=== PATIENT | female | born 1980 | race Caucasian/White ===

== ENCOUNTER 2016-12-04 17:13 | Emergency (ER) | payer OTHER ==
[2016-12-04 17:24] VITALS: BP 117/71; PULSE 83; TEMP 98; BMI 29.1
--- NOTE | 2016-12-04 18:10 | PDOC ---
History of Present Illness <Doug Graham - Last Filed: 12/04/16 22:01> - History of Present Illness Initial Comments: 12/04/16 18:44 The patient is 36-year-old female, , LMP about 16 weeks, with no significant past medical history, who presents for evaluation after mechanical slip and fall down three steps today. The patient reports primarily landing onto her bottom and denies direct abdominal trauma. She has no complaints at this time. She reports she did not hit her head or lose consciousness. She denies abdominal pain or cramping. She denies vaginal bleeding. She states she presents simply to make sure her is okay. Allergies: NKDA <Urszula Nguyen - Last Filed: 12/04/16 22:48> - General Chief Complaint: Injury Stated Complaint: FALL/INJURY/16 WKS Time Seen by Provider: 12/04/16 17:46 Past History - Past Medical History Thyroid Disease: No - Surgical History Abdominal Surgery: Yes (cyst removal) - Psycho/Social/Smoking Cessation Hx Anxiety: No Suicidal Ideation: No Smoking History: Never smoked Have you smoked in the past 12 months: No Information on smoking cessation initiated: No Hx Alcohol Use: No Drug/Substance Use Hx: No Substance Use Type: None <Doug Graham - Last Filed: 12/04/16 22:01> <Urszula Nguyen - Last Filed: 12/04/16 22:48> - Past Medical History Allergies/Adverse Reactions: Allergies Allergy/AdvReac Type Severity Reaction Status Date / Time No Known Allergies Allergy Verified 12/04/16 17:16 Home Medications: Ambulatory Orders NK [No Known Home Medication] 08/23/14 Review of Systems - Review of Systems Respiratory: No: Cough, Shortness of Breath ABD/GI: No: Nausea, Vomiting : No: Hematuria Musculoskeletal: No: Back Pain, Muscle Pain All Other Systems: Reviewed and Negative <Doug Graham - Last Filed: 12/04/16 22:01> *Physical Exam - Vital Signs Last Vital Signs Temp Pulse Resp BP Pulse Ox 98.0 F 83 16 117/71 100 12/04/16 17:17 12/04/16 17:17 12/04/16 17:17 12/04/16 17:17 12/04/16 17:17 <Doug Graham - Last Filed: 12/04/16 22:01> - Vital Signs Last Vital Signs Temp Pulse Resp BP Pulse Ox 98.0 F 83 16 117/71 100 12/04/16 17:17 12/04/16 17:17 12/04/16 17:17 12/04/16 17:17 12/04/16 17:17 - Physical Exam Comments: 12/04/16 18:47 General: Patient is alert and in no acute distress. Speech is clear and appropriate. Head: Atraumatic and nontender. HEENT: Pupils are equal round and reactive to light, extraocular movements are intact. The tympanic membranes are clear, no hemotympanum. No facial deformity/ tenderness, no septal hematoma. The oropharynx is clear. Neck: The trachea is midline, there is no stridor. There is no midline cervical spine tenderness, full range of motion of neck. Chest: Nontender, no ecchymosis or abrasions. Heart: S1-S2, regular rate and rhythm. No murmurs. Lungs: Clear to auscultation bilaterally. Symmetric chest rise. Abdomen: Soft/nontender/nondistended. Bowel sounds are normal. There is no abdominal or flank ecchymosis. Back/Pelvis: There is no midline spine tenderness or step-off. Pelvis is stable and nontender. Extremities: There is no extremity deformity or joint swelling. No focal bony tenderness throughout. 2+ distal pulses throughout. Neuro: Alert and oriented x3. Cranial nerves II through XII are intact. 5 out of 5 motor strength x4 extremities. [id number] is intact. No pronator drift. Gait is stable. Skin: No abrasions/hematomas/lacerations. Psych: Affect is appropriate. <Urszula Nguyen - Last Filed: 12/04/16 22:48> ED Treatment Course - RADIOLOGY Radiology Studies Ordered: Category Date Time Status US(SINGLE) [US] Stat Ultrasound 12/04/16 17:48 Ordered <Doug Graham - Last Filed: 12/04/16 22:01> - RADIOLOGY Radiograph Interpretation: 12/04/16 22:47 EXAM: US(SINGLE) was read by Red Randolph M.D. 12/04/2016 21:43 EST FINDINGS: Transabdominal ultrasound of the pelvis was performed. A single gestational sac is identified with a single fetus in cephalic presentation. The cervix is of normal length and closed. Positive heart rate identified at 148 bpm. Normal amount of amniotic fluid. Normal active movement. BPD is 3.54 cm at 16 weeks and 6 days. HC is 14.43 cm at 17 weeks and 5 days. AC is 12.40 cm at 18 weeks and 0 days. FL is 2.8 cm at 18 weeks and 4 days. The placenta is posterior, no evidence of placenta previa and grade 1. IMPRESSION Viable single intrauterine with positive heart rate identified. Active fetus is noted. Normal amount of amniotic fluid. Normal anatomy as seen. Recommend follow-up after 25 weeks for a complete anatomic review. Estimated gestational age is 17 weeks and 5 days. EDC is 05/09. Estimated weight is 228.5 g. <Urszula Nguyen - Last Filed: 12/04/16 22:48> Medical Decision Making - Medical Decision Making 12/04/16 18:08 A portion of this note was documented by scribe services under my direction. I have reviewed the details of the note, within reason, and agree with the documentation with the following case summary and management plan written by me. Healthy 36-year-old LMP about 16 weeks presents for evaluation after slip and fall down steps. Patient slipped and fell down about 3 steps primarily landing on her bottom, no direct abdominal trauma. She has no complaints, did not hit her head or lose consciousness, has no pain or cramping or bleeding. She presents simply to make sure her is okay. Uncomplicated IUP today. Vital signs normal. Well-appearing. Trauma exam is normal without external signs of bruising or injury, abdomen is benign, pelvis is stable and neurological exam is normal without focal joint/ bony pathology. 36-year-old female with slip and fall down 3 steps, overall minor injury but at second trimester gestation so will rule out any injury to uterus/. Formal ultrasound Monitor and dispo, does not meet criteria for monitoring given gestational age 0612/04/16 20:48 Feels well, no cramps or bleeding. No pain. On my prelim review of the sono images, + FH. Awaiting radiology read. 12/04/16 22:01 normal IUP with normal FH and activity. Cervix normal and closed. Normal IUP without acute abnormality. Pt feels well, asymptomatic. Agrees with d/c plan, feels reassured. Understands return criteria. <Doug Graham - Last Filed: 12/04/16 22:01> *DC/Admit/Observation/Transfer <Doug Graham - Last Filed: 12/04/16 22:01> - Attestations Scribe Attestion: 12/04/16 18:47 Documentation prepared by Urszula Nguyen, acting as medical bill processor for Doug Graham MD, <Urszula Nguyen - Last Filed: 12/04/16 22:48> Diagnosis at time of Disposition: Second trimester Accidental fall Qualifiers: Encounter type: initial encounter Qualified Code(s): W19.XXXA - Unspecified fall, initial encounter - Discharge Dispostion Disposition: HOME Condition at time of disposition: Stable - Referrals Referrals: Paula Hermosillo MD [Primary Care Provider] - - Patient Instructions Printed Discharge Instructions: DI for Musculoskeletal Pain Additional Instructions: Activity as tolerated. Stay hydrated. Tylenol 1000 mg every 8 hours as needed for pain. An ultrasound today shows no complications or injury and a normal . You should follow up with your SOFTWARE CONSULTANT as soon as possible regarding today's emergency department visit. Return to the emergency department for any new or concerning symptoms, particularly severe pain, cramping or bleeding, numbness or tingling or swelling.
== END 2016-12-04 22:32 | disposition home or self-care (01) ==
LOC: JER 17:13
DX: Z03.79 Encounter for other suspected maternal and fetal conditions ruled out (principal); W10.9XXA Fall (on) (from) unspecified stairs and steps, initial encounter; Y93.89 Activity, other specified; Y92.038 Other place in apartment as the place of occurrence of the external cause; Z3A.16 16 weeks gestation of pregnancy
CPT/HCPCS: 76801-TC; 99282-25